=== PATIENT | female | born 1995 | race Asian ===

== ENCOUNTER 2018-03-19 23:38 | Emergency (ER) | payer OTHER ==
[2018-03-19] MEDS ORDERED: EPINEPHrine 1 MG INJ (23:53)
[2018-03-19] MEDS ORDERED: METHYLPREDNISOLONE 125 MG INJ (23:53)
[2018-03-19] MEDS ORDERED: DIPHENHYDRAMINE 50 MG INJ (23:53)
[2018-03-19] MEDS: DIPHENHYDRAMINE 50 MG INJ IV (23:59)
[2018-03-19] MEDS: METHYLPREDNISOLONE 125 MG INJ IV (23:59)
[2018-03-19] MEDS: EPINEPHrine 1 MG INJ IM (23:59)
[2018-03-20] MEDS: FAMOTIDINE 20 MG INJ IV (00:19)
== END 2018-03-20 02:11 | disposition home or self-care (01) ==
LOC: E/R 23:38
DX: T78.01XA Anaphylactic reaction due to peanuts, initial encounter (principal); Z91.010 Allergy to peanuts
CPT/HCPCS: 96372; 96374; 96375; 99291-25